=== PATIENT | male | born 1975 | race Caucasian/White ===

== ENCOUNTER → 2017-10-17 | Outpatient (CLI) | payer BC ==
--- NOTE | 2017-10-17 12:25 | KCIC ---
Two-view ORBIT 10/17/2017. No comparison available. 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 Findings: 2 views orbits show no evidence of radiopaque foreign body. Paranasal sinuses are clear. No acute bony abnormality. There is dental amalgam IMPRESSION: No evidence of orbital metallic foreign body. Electronically signed by: Khadar Antunez MD (10/17/2017 12:21 PM) [id number]
--- NOTE | 2017-10-17 13:35 | KCIC ---
UPPER EXT JOINT WO CONT RIGHT dated 10/17/2017 12:30 PM Indication: Right shoulder pain , recent fall , fall 5 days ago.. Comparison: No comparison is available. Technique: Routine multiplanar multisequence imaging performed. . Findings: There is a comminuted fracture of the greater tuberosity, not significantly displaced. Patchy edema within the marrow of the proximal humerus with small hypointense fracture lines. Marrow signal is otherwise homogeneous. Intermediate T2 signal within the supraspinatus and infraspinatus portions of the rotator cuff. Small linear T2 hyperintense defect at the anterior supraspinatus footplate appears to extend near full-thickness with a few articular surface fibers that remain attached. No retracted tear. Long head biceps tendon and biceps anchor are intact. Extra articular biceps tendon courses within the bicipital groove. There is mild edema and fluid along the bicipital groove with edema in the anterior deltoid muscle. There is mild blunted morphology of the posterior superior labrum glenoid labrum is otherwise intact. No glenoid cartilage defect. Small glenohumeral joint effusion. Possible small loose bodies at the posterior and inferior joint space. The anterior band of the inferior glenohumeral ligament is ill-defined and at its humeral attachment. There is edema along the anterior and inferior glenohumeral joint. Blunted morphology and signal irregularity at the anterior inferior labrum. Mild hypertrophic change of the acromial clavicular joint. No significant undersurface spurring. Small amount of subacromial/subdeltoid bursal fluid. Acromium is type II morphology. IMPRESSION: 1. Nondisplaced fracture of the greater tuberosity. 2. Abnormal signal and morphology of the anterior inferior labrum, suspicious for labral tear. There is also abnormal signal and ill-definition of the anterior band inferior glenohumeral ligament at its humeral attachment, suspicious for a humeral avulsion (HAGL lesion). If indicated, MR arthrogram could provide additional information. 3. Probable small SLAP tear of the posterior superior labrum. 4. Rotator cuff tendinopathy with small high-grade partial tear versus nonretracted full-thickness tear of the anterior supraspinatus footplate. 5. Edema within the anterior deltoid muscle, likely related to low-grade strain or muscle contusion. Electronically signed by: Khadar Antunez MD (10/17/2017 1:33 PM) [id number]
== END | disposition home or self-care (01) ==
LOC: KCIC MRI 12:09
PROVIDERS: ATTEND Chiropractor
DX: S42.91XA Fracture of right shoulder girdle, part unspecified, initial encounter for closed fracture (principal); T15.90XA Foreign body on external eye, part unspecified, unspecified eye, initial encounter; X58.XXXA Exposure to other specified factors, initial encounter; Y93.89 Activity, other specified; Y92.89 Other specified places as the place of occurrence of the external cause; Y99.8 Other external cause status
CPT/HCPCS: 70030; 73221